=== PATIENT | male | born 1945 | race Caucasian/White ===

== ENCOUNTER → 2019-04-13 | Outpatient (CLI) | payer OTHER ==
[~2019-04-13] MED LIST: AMBIEN 10 MG TA10 MG PO; APAP500 PO; ASPIRIN81 M2 PO; B COMPLEX WITH1 EAC1 PO; CELEXA 20 MG TA20 M1 PO; CENTRUM SILVER1 EAC4 PO; CITRATE OF MAG296 ML PO; CLOPIDOGREL75 MG PO; FISH OIL 1,0001 EAC7 PO; FISH OIL 1,0001 EAC9 PO; FISH OIL 1,001000 M2 PO; FLEXERIL PO; FLOMAX0.4 MG PO; FOLIC ACID1 MG PO; HYDROCODONE-AP1 EAC6 PO; LEVOTHROID100 MC1 PO; LEVOTHYROXINE 0.1 MG PO; LEVOXYL125 MCG PO; LOSARTAN POTAS100 MG PO; MIRALAX17 GM PO; NEURONTIN 300M300 M2 PO; NORCO 5-325 TA1 EACH PO; NORVASC5 M1 PO; PRAVACHOL40 MG PO; PROBIOTIC1 EAC7 PO; REMERON15 MG PO; SUPER THERAVIT1 EACH PO; TRAZODONE HCL100 MG PO; XANAX 0.25 MG0.25 MG PO; ZOFRAN ODT4 MG PO
== END ==
LOC: SJCVC 12:57
DX: Z45.018 Encounter for adjustment and management of other part of cardiac pacemaker (principal); R00.1 Bradycardia, unspecified; I48.0 Paroxysmal atrial fibrillation; I12.9 Hypertensive chronic kidney disease with stage 1 through stage 4 chronic kidney disease, or unspecified chronic kidney disease; N18.3 Chronic kidney disease, stage 3 (moderate); I71.4 Abdominal aortic aneurysm, without rupture; E78.2 Mixed hyperlipidemia; I65.23 Occlusion and stenosis of bilateral carotid arteries; J44.9 Chronic obstructive pulmonary disease, unspecified; F17.210 Nicotine dependence, cigarettes, uncomplicated; Z79.82 Long term (current) use of aspirin; Z79.899 Other long term (current) drug therapy; Z86.711 Personal history of pulmonary embolism

== ENCOUNTER → 2019-05-22 | Outpatient (CLI) | payer OTHER | LOC: SJCVCIMAG 07:23 | DX: I65.23 Occlusion and stenosis of bilateral carotid arteries (principal); I08.0 Rheumatic disorders of both mitral and aortic valves; I27.20 Pulmonary hypertension, unspecified; I71.4 Abdominal aortic aneurysm, without rupture; E78.00 Pure hypercholesterolemia, unspecified; I25.10 Atherosclerotic heart disease of native coronary artery without angina pectoris; I25.84 Coronary atherosclerosis due to calcified coronary lesion; I10 Essential (primary) hypertension; I70.8 Atherosclerosis of other arteries; F17.200 Nicotine dependence, unspecified, uncomplicated ==

== ENCOUNTER → 2019-05-25 | Outpatient (CLI) | payer OTHER | LOC: SJCVCIMAG 08:15 | DX: I25.10 Atherosclerotic heart disease of native coronary artery without angina pectoris (principal); I25.84 Coronary atherosclerosis due to calcified coronary lesion; F17.200 Nicotine dependence, unspecified, uncomplicated; I10 Essential (primary) hypertension; E78.5 Hyperlipidemia, unspecified; I73.9 Peripheral vascular disease, unspecified; Z79.899 Other long term (current) drug therapy ==

== ENCOUNTER 2019-06-03 10:26 | Outpatient (CLI) | payer OTHER ==
[~2019-06-03] VITALS: Ht 182.9 cm; Wt 70.8 kg
[2019-06-03] VITALS (10 sets, daily range): BP systolic 133–181; BP diastolic 77–93
[~2019-06-03 10:26] MED LIST changes: -CLOPIDOGREL75 MG PO; -FISH OIL 1,0001 EAC9 PO; -FLEXERIL PO; -LEVOXYL125 MCG PO; -LOSARTAN POTAS100 MG PO; -NEURONTIN 300M300 M2 PO; -PRAVACHOL40 MG PO; -PROBIOTIC1 EAC7 PO; -SUPER THERAVIT1 EACH PO
[2019-06-03 11:31] LABS: HEMATOCRIT 38.9 % (42.0-52.0); HEMOGLOBIN 13.1 gm/dL (14.0-18.0); MCH 37.2 pg (26.0-34.0); MCHC 33.7 g/dL (28.0-37.0); MCV 110.4 fL (80.0-100.0); RBC 3.53 mil/uL (4.50-6.00); RDW 13.2 % (10.5-14.5); WBC 4.8 thou/uL (4.0-11.0)
[2019-06-03 11:34] LABS: CALCIUM 9.3 mg/dL (8.5-10.1); CREATININE 2.2 mg/dL (0.7-1.3); POTASSIUM 4.7 mmol/L (3.5-5.1)
[2019-06-03] MEDS ORDERED: FISH OIL 1,0001 EAC9 PO (11:54)
[2019-06-03] MEDS ORDERED: FLEXERIL PO (11:54)
[2019-06-03] MEDS ORDERED: NEURONTIN 300M300 M2 PO (11:55)
[2019-06-03] MEDS ORDERED: LEVOXYL125 MCG PO (11:56)
[2019-06-03] MEDS ORDERED: SUPER THERAVIT1 EACH PO (11:57)
[2019-06-03] MEDS ORDERED: LOSARTAN POTAS100 MG PO (11:57)
[2019-06-03] MEDS ORDERED: PROBIOTIC1 EAC7 PO (11:58)
[2019-06-03] MEDS ORDERED: PRAVACHOL40 MG PO (11:58)
--- NOTE | 2019-06-03 19:34 | NUR ---
PT ADMITED FROM MANAGER CONSUMER. ADMISSION HX AND ASSESSMENT COMPLETED.RIGHT GROIN INCISION C/D/I WITH DRY BLOOD NOTED. NO HEMATOMA NOTED. PT INSTRUCTED TO IMMOBILIZE THE RIGHT FOR 6 HOURS. REPORT PASSED ON TO THE NIGHT NURSE WILL CONTINUE TO MONITOR.
[2019-06-04 00:30] VITALS: BP 113/47
[2019-06-04 04:32] VITALS: BP 142/83
--- NOTE | 2019-06-04 05:40 | NUR ---
PT A&O X4 ABLE TO MAKE NEEDS KNOWN. UP AD JOAQUIN. PT HAD A CATH DURING THE PREVIOUS SHIFT VIA R GROIN. SITE GAUZE CDI. C/O OF CHROMIC PAIN BELOW THE LEFT RIBS. PT REQUESTED LIDACAINE PATCH AND WAS PROVIDED.
[2019-06-04 06:25] LABS: ALBUMIN 3.5 g/dL (3.4-5.0); CALCIUM 8.8 mg/dL (8.5-10.1); CREATININE 1.8 mg/dL (0.7-1.3); POTASSIUM 4.7 mmol/L (3.5-5.1); TOTAL BILIRUBIN 0.5 mg/dL (<0.1-1.0); TOTAL PROTEIN 6.9 g/dL (6.4-8.2)
[2019-06-04] MEDS ORDERED: CLOPIDOGREL75 MG PO (07:09)
[2019-06-04 09:22] VITALS: BP 142/83
--- NOTE | 2019-06-04 09:38 | NUR ---
ASSESSMENT CHARTED. PT ALERT AND ORIENTED. VSS. SEEN BY DR. NGUYEN. ORDERS GIVEN TO DISCHARGE PT TO HOME. DISCHARGE INSTRUCTIONS GIVEN TO PT. PT VERBERLISED UNDERSTANDING. PT LEFT THE FACILITY ACCOMPANIED BY THE FRIEND.
--- NOTE | 2019-06-11 16:08 | CATHLAB ---
[facility] [place] [address] [place] [address] INVASIVE PROCEDURE REPORT Name: LYNDON SILVA Room #: DEP CASSIDY Baker#: [id number] Admission: 06/03/19 Attend Phys: Raul Mendoza MD, Discharge: 06/04/19 Date of : 45 Report #: [id number] THIS REPORT FOR: cc: Carmela Tavraez MD, Marsha M. MD Mancuso, Gerald M. MD [facility] ~ APPROVED REPORT Study performed: 06/03/2019 16:02:03 Patient Details Patient Status: Out-Patient Room #: The patient is a 74 year-old male Event Personnel Carlos Alberto Delgado Interventional Radiologist, Nelida Lopez RN RN, Madina Hewitt Monitor, Madina Hewitt Monitor, Caroline Ortez Mancuso, Gerald Nitrator Operator, Clovis Lopez RTKim Monitor Procedures Performed Art Access - R femoral artery* 35669 Initial Mod Sed Same Phys/QHP Gr5y [id number] Left Heart Cath w/or w/o Coronaries [id number] [facility] [address]686 Mod Sed Same Phys/QHP Ea 275761 Hemostasis with Manual pressure Indication Chest pain Procedure Narrative A SHEATH BRITE-TIP 6F X 11CM ([id number]) sheath was inserted into the RFA^. Coronary angiography was performed using coronary diagnostic catheters. The right coronary system was accessed and visualized with a JR4 catheter. The left coronary system was accessed and visualized with a JL4 catheter. The left ventricle was accessed and visualized with a STR, OUG catheter. Left ventriculogram was performed in 30 degree projection. The patient tolerated the procedure well and there were no complications associated with the procedure. There was no hematoma. Intraoperative Conscious Sedation Sedation start time: 1618 Case end Time: 1656 Fentanyl 75 mcg Versed 1 mg [facility] [place] [address] INVASIVE PROCEDURE REPORT Name: LYNDON SILVA Room #: [facility] Samuel#: [id number] Admission: 06/03/19 Attend Phys: Raul Mendoza, Discharge: 06/04/19 Date of : 45 Report #: [id number] Fluoro Time: 13.61 minutes Dose: DAP 37653.00 cGycm2 174 mGy Contrast Type and Amount: Visipaque 50 ml Hemodynamics The aortic pressure is 180/69 mmHg with a mean of 46 mmHg. The left ventricular pressure is 170/5 mmHg with a mean of mmHg. The left ventricular end diastolic pressure is 94 mmHg. NO LV due to creat. of 2.1. PCI Technique Lesion Percutaneous coronary intervention was performed on the Common iliac. Conclusion 1. Left main with mild disease ostial 30% giving rise to LAD circumflex #2 LAD diffusely diseased 3040% mid vessel this extends around the apex. Attenuated distally. #3 circumflex OM proximal calcification with eccentric 40% lesion nondominant vessel. #4 dominant right coronary with mild irregularity. Recommendations and plan: Continue aggressive risk factor modification. <ELECTRONICALLY SIGNED> By: Raul Mendoza MD, [facility] 06/11/19 1607 1607 1607 Raul Mendoza MD, FACC /INF
--- NOTE | 2019-06-12 15:32 | EKG ---
[facility] [place] [address] ELECTROCARDIOGRAM REPORT Name: LYNDON SILVA Room #: DEP [facility]..#: [id number] Admission: 06/03/19 Attend Phys: Raul Mendoza MD, Discharge: 06/04/19 Date of : 45 Report #: [id number] THIS REPORT FOR: cc: Carmela Tavarez MD, Marsha M. MD Lundgren, Craig H. MD [facility] ~ THIS REPORT FOR: //name// [facility] Test Date: 2019-06-03 Test Time: 11:22:03 Pat Name: LYNDON SILVA Department: Room: Gender: Ux Visual Designer: Bubba AGUIRRE : 1945 Requested By: Raul Mendoza Order Number: [id number] MD: Juan Santiago Measurements Intervals [place] Rate: 63 P: CA: 202 QRS: 19 QRSD: 91 T: 17 QT: 404 QTc: 414 Interpretive Statements Atrial-paced complexes Abnormal R-wave progression, early transition Compared to ECG 05/03/2014 17:26:26 No significant changes Electronically Signed On 06-05-2019 9:05:22 [employer]ENT by Juan Santiago [email or web address] <ELECTRONICALLY SIGNED> By: Juan Santiago MD, [facility] 06/05/19 0905 1122 1122 Juan Santiago MD, [facility] /EPI
== END 2019-06-04 09:39 | disposition home or self-care (01) ==
LOC: CATH 10:26 → 2N 17:29 → ENTRNSPT 06-04 09:33 → EDTRNSPTSTS 06-04 09:37 → CATH 06-04 09:39
PROVIDERS: Internal Medicine Cardiovascular Disease
DX: R07.9 Chest pain, unspecified (principal); I25.10 Atherosclerotic heart disease of native coronary artery without angina pectoris; I70.211 Atherosclerosis of native arteries of extremities with intermittent claudication, right leg; L97.829 Non-pressure chronic ulcer of other part of left lower leg with unspecified severity; I70.1 Atherosclerosis of renal artery; I12.9 Hypertensive chronic kidney disease with stage 1 through stage 4 chronic kidney disease, or unspecified chronic kidney disease; N18.9 Chronic kidney disease, unspecified; E78.5 Hyperlipidemia, unspecified; N40.0 Benign prostatic hyperplasia without lower urinary tract symptoms; E03.9 Hypothyroidism, unspecified; F17.210 Nicotine dependence, cigarettes, uncomplicated; Z98.890 Other specified postprocedural states; Z79.899 Other long term (current) drug therapy; Z95.0 Presence of cardiac pacemaker; Z98.41 Cataract extraction status, right eye; Z98.42 Cataract extraction status, left eye; Z85.810 Personal history of malignant neoplasm of tongue
CPT/HCPCS: 10081

== ENCOUNTER → 2019-09-25 | Outpatient (CLI) | payer OTHER ==
[~2019-09-25] MED LIST changes: +CLOPIDOGREL75 MG PO; +FISH OIL 1,0001 EAC9 PO; +FLEXERIL PO; +LEVOXYL125 MCG PO; +LOSARTAN POTAS100 MG PO; +NEURONTIN 300M300 M2 PO; +PRAVACHOL40 MG PO; +PROBIOTIC1 EAC7 PO; +SUPER THERAVIT1 EACH PO
== END ==
LOC: SJCVCIMAG 09:18
PROVIDERS: ATTEND Internal Medicine Cardiovascular Disease
DX: Z45.018 Encounter for adjustment and management of other part of cardiac pacemaker (principal); I70.1 Atherosclerosis of renal artery; I71.4 Abdominal aortic aneurysm, without rupture; R94.31 Abnormal electrocardiogram [ECG] [EKG]; E78.2 Mixed hyperlipidemia; I49.5 Sick sinus syndrome; I65.23 Occlusion and stenosis of bilateral carotid arteries; J44.9 Chronic obstructive pulmonary disease, unspecified; I12.9 Hypertensive chronic kidney disease with stage 1 through stage 4 chronic kidney disease, or unspecified chronic kidney disease; N18.3 Chronic kidney disease, stage 3 (moderate); F17.210 Nicotine dependence, cigarettes, uncomplicated; Z79.82 Long term (current) use of aspirin; Z79.899 Other long term (current) drug therapy; Z82.49 Family history of ischemic heart disease and other diseases of the circulatory system; Z95.828 Presence of other vascular implants and grafts

== ENCOUNTER → 2020-01-20 | Outpatient (CLI) | payer OTHER | LOC: SJCVC 12:53 | PROVIDERS: ATTEND Internal Medicine Cardiovascular Disease | DX: I25.10 Atherosclerotic heart disease of native coronary artery without angina pectoris (principal); I70.1 Atherosclerosis of renal artery; I73.9 Peripheral vascular disease, unspecified; I71.4 Abdominal aortic aneurysm, without rupture; I49.5 Sick sinus syndrome; E78.00 Pure hypercholesterolemia, unspecified; I10 Essential (primary) hypertension; Z95.0 Presence of cardiac pacemaker ==

== ENCOUNTER → 2020-06-14 | Outpatient (CLI) | payer OTHER | LOC: SJCVCIMAG 07:24 | PROVIDERS: ATTEND Internal Medicine Cardiovascular Disease | DX: I70.1 Atherosclerosis of renal artery (principal); I73.9 Peripheral vascular disease, unspecified; I77.9 Disorder of arteries and arterioles, unspecified; I71.4 Abdominal aortic aneurysm, without rupture; E78.00 Pure hypercholesterolemia, unspecified; J44.9 Chronic obstructive pulmonary disease, unspecified; I12.9 Hypertensive chronic kidney disease with stage 1 through stage 4 chronic kidney disease, or unspecified chronic kidney disease; N18.30 Chronic kidney disease, stage 3 unspecified; I25.10 Atherosclerotic heart disease of native coronary artery without angina pectoris; I25.84 Coronary atherosclerosis due to calcified coronary lesion; I49.5 Sick sinus syndrome; I65.23 Occlusion and stenosis of bilateral carotid arteries; I48.0 Paroxysmal atrial fibrillation; F17.210 Nicotine dependence, cigarettes, uncomplicated; Z98.890 Other specified postprocedural states; Z95.0 Presence of cardiac pacemaker; Z95.828 Presence of other vascular implants and grafts; Z79.82 Long term (current) use of aspirin; Z79.899 Other long term (current) drug therapy; Z86.711 Personal history of pulmonary embolism; Z82.49 Family history of ischemic heart disease and other diseases of the circulatory system ==

== ENCOUNTER → 2021-01-31 | Outpatient (CLI) | payer OTHER | LOC: SJCVCIMAG 09:57 | PROVIDERS: ATTEND Nuclear Medicine Nuclear Cardiology | DX: I65.23 Occlusion and stenosis of bilateral carotid arteries (principal); I71.4 Abdominal aortic aneurysm, without rupture; E78.00 Pure hypercholesterolemia, unspecified; I77.9 Disorder of arteries and arterioles, unspecified; I25.10 Atherosclerotic heart disease of native coronary artery without angina pectoris; I10 Essential (primary) hypertension; I70.1 Atherosclerosis of renal artery; I73.9 Peripheral vascular disease, unspecified; F17.210 Nicotine dependence, cigarettes, uncomplicated; J44.9 Chronic obstructive pulmonary disease, unspecified; I12.9 Hypertensive chronic kidney disease with stage 1 through stage 4 chronic kidney disease, or unspecified chronic kidney disease; N18.30 Chronic kidney disease, stage 3 unspecified; Z72.89 Other problems related to lifestyle; Z79.899 Other long term (current) drug therapy; Z79.82 Long term (current) use of aspirin; Z95.0 Presence of cardiac pacemaker; Z95.828 Presence of other vascular implants and grafts ==